=== PATIENT | female | born 1975 | race Caucasian/White ===

== ENCOUNTER 2019-01-31 23:50 | Emergency (ER) | payer SELFPAY ==
[~2019-01-31] VITALS: Ht 157.5 cm; Wt 60.8 kg
[2019-02-01 00:03] VITALS: BP 167/93; Ht 157.5 cm; Wt 60.8 kg
== END 2019-02-01 01:33 | disposition left against medical advice (07) ==
LOC: ED 23:50
DX: Z53.21 Procedure and treatment not carried out due to patient leaving prior to being seen by health care provider (principal)

== ENCOUNTER 2019-02-02 15:33 | Emergency (ER) | payer SELFPAY ==
[~2019-02-02] VITALS: Ht 154.9 cm; Wt 60.3 kg
[2019-02-02 15:45] VITALS: Ht 154.9 cm; Wt 60.3 kg
[2019-02-02 18:16] VITALS: BP 151/89
== END 2019-02-02 18:16 | disposition home or self-care (01) ==
LOC: ED 15:33
DX: L02.811 Cutaneous abscess of head [any part, except face] (principal); A59.9 Trichomoniasis, unspecified; L98.9 Disorder of the skin and subcutaneous tissue, unspecified
CPT/HCPCS: J2001